=== PATIENT | female | born 1970 | race Asian ===

== ENCOUNTER 2019-01-31 22:49 | Emergency (ER) | payer BC ==
[~2019-01-31] VITALS: Ht 162.6 cm; Wt 145.2 kg
[~2019-01-31 22:49] MED LIST: NEXIUM40 M1 PO; ZANTAC 75 PO
[2019-01-31 23:44] LABS: PLATELET COUNT 190 K/uL (152-353)
[2019-02-01 00:02] LABS: POTASSIUM 3.2 mmol/L (3.6-5.2); SODIUM 141 mmol/L (136-145)
[2019-02-01 00:42] LABS: PARTIAL THROMBOPLASTIN TIME 65.7 SECONDS (24.5-33.6)
[2019-02-01 01:05] VITALS: BP 139/90; TEMP 97.5
== END 2019-02-01 01:05 | disposition home or self-care (01) ==
LOC: ED 22:49
PROVIDERS: Hospitalist
DX: R07.89 Other chest pain (principal); R00.0 Tachycardia, unspecified
CPT/HCPCS: 80053; 82550; 82553; 83880; 84484; 85027; 85379; 85610; 85730; 93005; 96374; 96375; 99284; J1642; J1885; J2405

== ENCOUNTER 2021-05-09 12:47 | Outpatient (CLI) | payer OTHER | END 2021-05-09 20:27 | disposition home or self-care (01) | LOC: RAD 12:47 | PROVIDERS: ATTEND Nurse Practitioner Family | DX: M25.561 Pain in right knee (principal) ==

== ENCOUNTER 2021-07-10 13:46 | Outpatient (CLI) | payer OTHER | END 2021-07-10 19:21 | disposition home or self-care (01) | LOC: RAD 13:46 | PROVIDERS: ATTEND Internal Medicine | DX: M06.4 Inflammatory polyarthropathy (principal); M25.562 Pain in left knee; M79.641 Pain in right hand; M79.642 Pain in left hand ==

== ENCOUNTER 2022-05-05 14:33 | Emergency (ER) | payer OTHER ==
[~2022-05-05] VITALS: Ht 162.6 cm; Wt 145.2 kg
[2022-05-05 14:35] VITALS: TEMP 98.3
[2022-05-05 15:26] LABS: PLATELET COUNT 254 K/uL (152-353)
[2022-05-05 15:34] LABS: POTASSIUM 3.8 mmol/L (3.6-5.2)
[2022-05-05 16:45] VITALS: BP 151/88
== END 2022-05-05 16:45 | disposition home or self-care (01) ==
LOC: ED 14:33
PROVIDERS: Family Medicine
DX: E86.0 Dehydration (principal); R42 Dizziness and giddiness; I10 Essential (primary) hypertension; T50.5X5A Adverse effect of appetite depressants, initial encounter; X58.XXXA Exposure to other specified factors, initial encounter; Y92.89 Other specified places as the place of occurrence of the external cause
CPT/HCPCS: 36415; 80053; 80307; 81002; 82150; 82550; 83690; 84484; 85027; 93005; 99283

== ENCOUNTER 2022-07-04 12:44 | Outpatient (CLI) | payer OTHER | END 2022-07-04 21:46 | disposition home or self-care (01) | LOC: RAD 12:44 | PROVIDERS: ATTEND Nurse Practitioner Primary Care | DX: M25.572 Pain in left ankle and joints of left foot (principal); M25.562 Pain in left knee; M54.59 Other low back pain ==

== ENCOUNTER 2022-09-16 15:55 | Outpatient (CLI) | payer OTHER | END 2022-09-16 20:46 | disposition home or self-care (01) | LOC: RAD 15:55 | PROVIDERS: ATTEND Nurse Practitioner Family | DX: M79.674 Pain in right toe(s) (principal) ==